=== PATIENT | female | born 1960 | race Caucasian/White ===

== ENCOUNTER → 2018-07-09 | Outpatient (CLI) | payer MEDICARE, BC ==
--- NOTE | 2018-07-10 15:41 | MR ---
EXAMINATION TYPE: MR brain wo/w con DATE OF EXAM: 07/09/2018 COMPARISON: 02/28/2016 MRI brain HISTORY: Relapsing multiple sclerosis, Rt hand weakness TECHNIQUE: Multiplanar, multisequence images of the brain and brainstem is performed without and with utilizing 7 mL intravenous Gadavist gadolinium contrast. Demyelinating disease protocol with additional Sagitt al Flair sequence performed. FINDINGS: T2 Lesions Present : Yes Approximate Number of Lesions: Again innumerable given the confluent appearance of the demyelinating plaques Locations Identified : Pericallosal, periventricular, and juxtacortical Size of Reference Lesion(s): Difficult to measure given the confluence however some of the more well-defined lesion such as in the left temporal lobe on image 23 of the FLAIR axial fat sat sequence measures 1.3 x 1.3 cm, unchanged from the prior. Overall the distribution and degree of white matter change is stable from the prior 2015 with no new discrete lesions seen. No enhancing lesions are lesions restricting diffusion to i ndicate active demyelination at this time. Enhancing Lesion(s) Present: No T1 Hypointense Lesion(s) Present: Yes Change from Prior: Stable Diffusion weighted images demonstrate no evidence of a recent infarct or other diffusion abnormality. There is no worrisome extra-axial fluid collection. The ventricular system and cisternal spaces ar e prominent with ventricular prominence slightly out of proportion to sulcal prominence. Both are adv anced for the patient's age. There is thinning of the corpus callosum and increased FLAIR signal surr ounding the corpus callosum activity seen in demyelinating disease. Midline structures demonstrate normal morphology. The craniocervical junction appears within normal limits. Post contrast images demonstrate no abnormal enhancement. The dural venous sinuses appear pa tent. The visualized sinuses are clear and the globes are intact. IMPRESSION: 1. Similar severe burden confluent demyelinating plaques in keeping with this patient's history of mu ltiple sclerosis with increased FLAIR signal surrounding the corpus callosum circumferentially, that can be seen in multiple sclerosis, and callosal atrophy. Overall atrophy is slightly out of proportio n to the patient's age. 2. No abnormal intracranial enhancement. No enhancing plaques to indicate active demyelination. No re stricted diffusion.
== END | disposition home or self-care (01) ==
LOC: RADMRIMAIN 12:53
PROVIDERS: ATTEND Psychiatry & Neurology Neurology
DX: G37.1 Central demyelination of corpus callosum (principal); G35 Multiple sclerosis
CPT/HCPCS: 70553; A9585